=== PATIENT | male | born 1990 | race Hispanic/Latino ===

== ENCOUNTER → 2022-05-04 | Outpatient (CLI) | payer BC | END | disposition home or self-care (01) | LOC: RAH 11:14 | PROVIDERS: ATTEND Family Medicine | DX: M75.51 Bursitis of right shoulder (principal); M25.811 Other specified joint disorders, right shoulder; M25.511 Pain in right shoulder | CPT/HCPCS: 73221 ==

== ENCOUNTER 2024-07-26 23:11 | Emergency (ER) | payer BC ==
[~2024-07-26] VITALS: Ht 170.2 cm; Wt 83.9 kg
[2024-07-27 00:01] LABS: RAPID GROUP A STREP negative (NEGATIVE)
[2024-07-27 00:11] LABS: INFLUENZA TYPE A Negative For Type A (NEGATIVE); INFLUENZA TYPE B Negative For Type B (NEGATIVE)
[2024-07-27 00:13] VITALS: BP 110/69; PULSE 74; RESP 20; O2SAT 98
[2024-07-27 00:14] LABS: SARS-CoV-2, RNA, NAAT NEGATIVE SARS CoV-2 (NEGATIVE)
[2024-07-27] MEDS: dexaMETHasone SOD PHOSPHATE 4 MG/ML 1ML VIAL IM ONE (00:16)
[2024-07-27] MEDS: acetaMINOPHEN 500 MG TABLET PO ONE (00:16)
[2024-07-27] MEDS ORDERED: LORA10TA7 PO (00:28)
[2024-07-27] MEDS ORDERED: FLUT9.9S NS (00:28)
== END 2024-07-27 00:32 | disposition home or self-care (01) ==
LOC: EDH 23:11
DX: J32.9 Chronic sinusitis, unspecified (principal); H66.91 Otitis media, unspecified, right ear; Z20.822 Contact with and (suspected) exposure to COVID-19
CPT/HCPCS: 99284; 87635; 87880; 87804 ×2; 96372; J1100